=== PATIENT | male | born 1960 | race Caucasian/White ===

== ENCOUNTER 2016-06-19 07:12 | Emergency (ER) | payer OTHER ==
[~2016-06-19] VITALS: Ht 160 cm; Wt 65.0 kg
[~2016-06-19 07:12] MED LIST: IBUP-1542 PO
[2016-06-19 07:15] VITALS: Ht 160 cm; Wt 65.0 kg
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
[2016-06-19] MEDS ORDERED: NAPR-260 PO (08:33)
[2016-06-19] MEDS ORDERED: ACET500C5 PO (08:33)
== END 2016-06-19 09:12 | disposition home or self-care (01) ==
LOC: FTE 07:12
DX: S59.902A Unspecified injury of left elbow, initial encounter (principal); S69.91XA Unspecified injury of right wrist, hand and finger(s), initial encounter; I25.10 Atherosclerotic heart disease of native coronary artery without angina pectoris; I10 Essential (primary) hypertension; V28.9XXA Unspecified motorcycle rider injured in noncollision transport accident in traffic accident, initial encounter; Z98.61 Coronary angioplasty status
CPT/HCPCS: 29125; 73080; 73110; Z7502

== ENCOUNTER 2016-09-21 06:22 | Emergency (ER) | payer OTHER ==
[~2016-09-21] VITALS: Ht 157.5 cm; Wt 58.0 kg
[~2016-09-21 06:22] MED LIST changes: +ACET500C5 PO; +NAPR-260 PO
[2016-09-21 06:25] VITALS: Ht 157.5 cm; Wt 58.0 kg
[2016-09-21] MEDS ORDERED: SOD CHLORIDE 0.9% 1,000 ML IV STA (06:50)
[2016-09-21] MEDS ORDERED: morphine 4 MG/ML VIAL IV STA (06:50)
[2016-09-21] MEDS ORDERED: ONDANSETRON 4 MG INJ IV STA (06:50)
[2016-09-21 07:35] LABS: ADD SCAN DIFF NO
[2016-09-21 07:44] LABS: BASOPHILS % 0.2 % (0.0-2.0); EOSINOPHILS # 0.1 10^3/ul (0.0-0.5); EOSINOPHILS % 0.4 % (0.0-7.0); HEMATOCRIT 46.8 % (42.0-52.0); HEMOGLOBIN 15.5 g/dl (14.0-18.0); LYMPHOCYTES # 0.7 10^3/ul (0.8-2.9); LYMPHOCYTES % 5.6 % (15.0-51.0); MEAN CORPUSCULAR HEMOGLOBIN 31.2 pg (29.0-33.0); MEAN CORPUSCULAR HGB CONC 33.1 g/dl (32.0-37.0); MEAN CORPUSCULAR VOLUME 94.2 fl (82.0-101.0); MEAN PLATELET VOLUME 11.4 fl (7.4-10.4); MONOCYTE # 0.6 10^3/ul (0.3-0.9); MONOCYTES % 4.9 % (0.0-11.0); NEUTROPHIL # 10.2 10^3/ul (1.6-7.5); NEUTROPHILS % 88.6 % (39.0-77.0); PLATELET COUNT 236 10^3/UL (140-415); RED BLOOD COUNT 4.97 10^6/ul (4.70-6.10); RED CELL DISTRIBUTION WIDTH 13.2 % (11.5-14.5); WHITE BLOOD COUNT 11.6 10^3/ul (4.8-10.8)
[2016-09-21 07:46] LABS: ADD UMIC NO; UR BILIRUBIN (Dip) NEGATIVE (NEGATIVE); UR BLOOD (Dip) NEGATIVE (NEGATIVE); UR CLARITY CLEAR (CLEAR); UR COLOR LT. YELLOW (YELLOW); UR GLUCOSE (Dip) NEGATIVE (NEGATIVE); UR KETONES (Dip) NEGATIVE (NEGATIVE); UR LEUKOCYTE ESTERASE (Dip) NEGATIVE (NEGATIVE); UR NITRITE (Dip) NEGATIVE (NEGATIVE); UR TOTAL PROTEIN (Dip) NEGATIVE (NEGATIVE); UR UROBILINOGEN (Dip) 0.2 E.U./dL (0.1-1.0)
[2016-09-21 07:57] LABS: ALBUMIN 5.1 g/dl (3.3-4.9); ALBUMIN/GLOBULIN RATIO 1.5; BILIRUBIN,INDIRECT 0.9 mg/dl (0-1.1); BILIRUBIN,TOTAL 0.9 mg/dl (0.2-1.3); CALCIUM 9.9 mg/dl (8.4-10.2); CREATININE 0.98 mg/dl (0.61-1.24); POTASSIUM 3.9 mmol/L (3.5-5.1); TOTAL PROTEIN 8.5 g/dl (6.1-8.1)
--- NOTE | 2016-09-21 07:58 | RADRPT ---
PROCEDURE: CT Abdomen and Pelvis without contrast. CLINICAL INDICATION: Abdominal pain TECHNIQUE: CT scan of the abdomen and pelvis was performed on a multidetector high-resolution CT s cann without intravenous contrast. Coronal and sagittal reformatted images were obtained from the axial source images. Images were reviewed on a high-resolution PACS workstation. The total exam CTD I equals 5mGy and the total exam DLP equals 304mGy-cm. One or more of the following dose reduction t echniques were used: Automated exposure control, Adjustment of the mA and/or kV according to patient size, and/or use of iterative reconstruction technique. COMPARISON: CT chest, abdomen pelvis 07/17/2014 FINDINGS: Evaluation of the solid organs is limited given the lack of intravenous contrast administration. Right middle lobe scarring. Similar appearance of the 4 mm right hepatic hypodense lesion that remains too small to characterize but probably a small cyst. The pancreas, spleen, and adrenals are grossly unremarkable. No focal pericholecystic inflammatory changes. No hydronephrosis. 1 mm nonobstructing left renal stone. No bowel obstruction. The appendix is not visualized but there is no focal inflammatory stranding i n the right lower quadrant. No retroperitoneal lymphadenopathy, ascites or evidence of pneumoperitoneum. Aortoiliac atherosclerosis. Prostate calcifications. IMPRESSION: 1 mm nonobstructing left renal stone. No evidence of bowel obstruction. RPTAT: AA .Anthony Contreras MD, Date Time Electronically viewed and signed by .Anthony Contreras MD, on 09/21/2016 07:58 .T/
[2016-09-21] MEDS ORDERED: ONDA4TAB14 PO (08:07)
[2016-09-21] MEDS ORDERED: ELEC100080 PO (08:07)
[2016-09-21 08:23] VITALS: BP 135/78; PULSE 86; RESP 20; TEMP 98.3
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
== END 2016-09-21 08:23 | disposition home or self-care (01) ==
LOC: FTE 06:22
DX: R11.2 Nausea with vomiting, unspecified (principal); R19.7 Diarrhea, unspecified; N20.0 Calculus of kidney; I25.10 Atherosclerotic heart disease of native coronary artery without angina pectoris; I10 Essential (primary) hypertension; Z98.61 Coronary angioplasty status
CPT/HCPCS: 74176; 80053; 81003; 83690; 85025; J2270; J2405; J7030; 36415; 96374; 96375

== ENCOUNTER 2017-07-29 08:57 | Emergency (ER) | END 2017-07-29 12:11 | disposition home or self-care (01) ==

== ENCOUNTER 2017-11-08 14:19 | Inpatient (IN) | END 2017-11-11 11:37 | disposition home or self-care (01) | DRG 247 ==